=== PATIENT | female | born 2000 | race Caucasian/White ===

== ENCOUNTER 2020-07-31 20:13 | Emergency (ER) | payer BC ==
[~2020-07-31] VITALS: Ht 175.3 cm; Wt 84.4 kg
[2020-07-31 20:14] VITALS: BP 128/70
[2020-07-31] MEDS ORDERED: ONDANSETRON 4 MG ORAL DISINTEGRATING TAB PO ONE (21:15)
[2020-07-31] MEDS ORDERED: ONDA4TAB6 PO (21:20)
== END 2020-07-31 21:29 | disposition home or self-care (01) ==
LOC: M ED 20:13
DX: S09.90XA Unspecified injury of head, initial encounter (principal); S16.1XXA Strain of muscle, fascia and tendon at neck level, initial encounter; W01.198A Fall on same level from slipping, tripping and stumbling with subsequent striking against other object, initial encounter; Y92.410 Unspecified street and highway as the place of occurrence of the external cause; Y93.02 Activity, running; Y99.8 Other external cause status
CPT/HCPCS: 99282; Q0162

== ENCOUNTER → 2020-08-23 | Outpatient (CLI) | payer SELFPAY ==
[~2020-08-23] MED LIST: ONDA4TAB6 PO
== END ==
LOC: M LABSMTC 13:15
PROVIDERS: ATTEND Pediatrics
DX: Z20.828 Contact with and (suspected) exposure to other viral communicable diseases (principal)

== ENCOUNTER → 2020-10-19 | Outpatient (CLI) | payer SELFPAY | LOC: M LABSMTC 13:38 | PROVIDERS: ATTEND Pediatrics | DX: Z20.822 Contact with and (suspected) exposure to COVID-19 (principal) ==